=== PATIENT | female | born 1985 | race Caucasian/White ===

== ENCOUNTER 2018-01-27 22:27 | Emergency (ER) | payer OTHER ==
--- NOTE | 2018-01-27 23:13 | EDM.PDOC ---
ED HPI GENERAL MEDICAL PROBLEM - General Chief Complaint: General Stated Complaint: 13WEEKS/BLEEDING Time Seen by Provider: 01/27/18 23:12 Source of Information: Reports: Patient - History of Present Illness INITIAL COMMENTS - FREE TEXT/NARRATIVE: HISTORY AND PHYSICAL: History of present illness: [32-year-old female presents with vaginal bleeding she is known to be 13 weeks under OB care, she has prior miscarriage at 8 weeks and one viable infant at home No fever nausea vomiting chills sweats no lateral no back pain or abdominal cramping no fluid leakage or discharge does have bleeding and spotting intermittently since this evening ] Review of systems: As per history of present illness and below otherwise all systems reviewed and negative. Past medical history: As per history of present illness and as reviewed below otherwise noncontributory. Surgical history: As per history of present illness and as reviewed below otherwise noncontributory. Social history: No reported history of drug or alcohol abuse. Family history: As per history of present illness and as reviewed below otherwise noncontributory. Physical exam: HEENT: Atraumatic, normocephalic, pupils reactive, negative for conjunctival pallor or scleral icterus, mucous membranes moist, throat clear, neck supple, nontender, trachea midline. Lungs: Clear to auscultation, breath sounds equal bilaterally, chest nontender. Heart: S1S2, regular, negative for clicks, rubs, or JVD. Abdomen: Soft, nondistended, nontender. Negative for masses or hepatosplenomegaly. Negative for costovertebral tenderness. Pelvis: Stable nontender. Genitourinary: Scant blood in the vaginal vault no products of conception cervix is closed Rectal: Deferred. Extremities: Atraumatic, negative for cords or calf pain. Neurovascular unremarkable. Neuro: Awake, alert, oriented. Cranial nerves II through XII unremarkable. Cerebellum unremarkable. Motor and sensory unremarkable throughout. Exam nonfocal. Diagnostics: [CBC CMP UA serum hCG Quant ABO type A positive on file] Therapeutics: []Vaginal rest 48 hours off work Follow-up with Dr. Newman Impression: [Threatened 13 weeks 4 days by ultrasound heart rate 153 Cervix closed ABO type A positive on file ] Definitive disposition and diagnosis as appropriate pending reevaluation and review of above. - Related Data Allergies Allergy/AdvReac Type Severity Reaction Status Date / Time No Known Allergies Allergy Verified 01/27/18 23:00 Home Meds: Home Meds . [No Known Home Meds] 09/10/15 [History] Past Medical History HEENT History: Reports: None Cardiovascular History: Reports: None Respiratory History: Reports: None Gastrointestinal History: Reports: None Genitourinary History: Reports: Renal Calculus Other Genitourinary History: hx kidney stone [employer] History: Reports: , Therapeutic Musculoskeletal History: Reports: None Neurological History: Reports: None Psychiatric History: Reports: None Endocrine/Metabolic History: Reports: Obesity/BMI 30+, Other (See Below) Other Endocrine/Metabolic History: states was on thyroid medication as a teenager Hematologic History: Reports: None Immunologic History: Reports: None Oncologic (Cancer) History: Reports: None Dermatologic History: Reports: None - Past Surgical History Head Surgeries/Procedures: Reports: None HEENT Surgical History: Reports: Adenoidectomy, Tonsillectomy Dermatological Surgical History: Reports: None Social & Family History - Family History Endocrine/Metabolic: Reports: Diabetes, type II Oncologic: Reports: Skin - Tobacco Use Smoking Status *Q: Never Smoker Second Hand Smoke Exposure: No - Caffeine Use Caffeine Use: Reports: None - Recreational Drug Use Recreational Drug Use: No ED ROS GENERAL - Review of Systems Review Of Systems: ROS reveals no pertinent complaints other than HPI. ED EXAM, GENERAL - Physical Exam Exam: See Below Course - Vital Signs Last Recorded V/S: Last Vital Signs Temp 98.4 F 01/27/18 22:58 Pulse 77 01/27/18 22:58 Resp 18 01/27/18 22:58 BP 130/66 01/27/18 22:58 Pulse Ox 98 01/27/18 22:58 - Orders/Labs/Meds Orders: Active Orders 24 hr Category Date Time Status OB Ltd 1 or More Fetus [US] Stat Exams 01/27/18 23:11 Taken UA W/MICROSCOPIC [URIN] Stat Lab 01/27/18 23:17 Ordered Labs: Laboratory Tests 01/27/18 01/27/18 01/27/18 Range/Units 23:17 23:27 23:27 WBC 8.39 (4.0-11.0) K/uL RBC 4.04 L (4.30-5.90) M/uL Hgb 12.2 (12.0-16.0) g/dL Hct 34.5 L (36.0-46.0) % MCV 85.4 (80.0-98.0) fL MCH 30.2 (27.0-32.0) pg MCHC 35.4 (31.0-37.0) g/dL RDW Std Deviation 39.1 (28.0-62.0) fl RDW Coeff of Cristel 13 (11.0-15.0) % Plt Count 250 (150-400) K/uL MPV 10.20 (7.40-12.00) fL Neut % (Auto) 52.7 (48.0-80.0) % Lymph % (Auto) 39.6 (16.0-40.0) % [place] % (Auto) 6.6 (0.0-15.0) % Eos % (Auto) 0.5 (0.0-7.0) % Baso % (Auto) 0.6 (0.0-1.5) % Neut # (Auto) 4.4 (1.4-5.7) K/uL Lymph # (Auto) 3.3 H (0.6-2.4) K/uL [place] # (Auto) 0.6 (0.0-0.8) K/uL Eos # (Auto) 0.0 (0.0-0.7) K/uL Baso # (Auto) 0.1 (0.0-0.1) K/uL Nucleated RBC % 0.0 /100WBC Nucleated RBCs # 0 K/uL Sodium 137 (136-145) mmol/L Potassium 3.7 (3.5-5.1) mmol/L Chloride 106 (98-107) mmol/L Carbon Dioxide 23.1 (21.0-32.0) mmol/L BUN 8 (7.0-18.0) mg/dL Creatinine 0.6 (0.6-1.0) mg/dL Est Cr Clr Drug Dosing 122.25 mL/min Estimated GFR (MDRD) > 60.0 ml/min Glucose 95 (74-106) mg/dL Calcium 9.2 (8.5-10.1) mg/dL Total Bilirubin 0.3 (0.2-1.0) mg/dL AST 16 (15-37) IU/L ALT 18 (14-63) IU/L Alkaline Phosphatase 43 L (46-116) U/L Total Protein 7.1 (6.4-8.2) g/dL Albumin 3.6 (3.4-5.0) g/dL Globulin 3.5 (2.0-3.5) g/dL Albumin/Globulin Ratio 1.0 L (1.3-2.8) HCG, Quant 49337.0 mIU/mL Urine Color YELLOW Urine Appearance CLEAR Urine pH 6.5 (5.0-8.0) Ur Specific [place] <= 1.005 (1.001-1.035) Urine Protein NEGATIVE (NEGATIVE) mg/dL Urine Glucose (UA) NEGATIVE (NEGATIVE) mg/dL Urine Ketones NEGATIVE (NEGATIVE) mg/dL Urine Occult Blood LARGE H (NEGATIVE) Urine Nitrite NEGATIVE (NEGATIVE) Urine Bilirubin NEGATIVE (NEGATIVE) Urine Urobilinogen 0.2 (<2.0) EU/dL Ur Leukocyte Esterase NEGATIVE (NEGATIVE) Urine RBC 7-10 (0-2/HPF) Urine WBC 0-1 (0-5/HPF) Ur Epithelial Cells RARE (NONE-FEW) Urine Bacteria RARE (NEGATIVE) Departure - Departure Time of Disposition: 01:18 Disposition: Home, Self-Care 01 Condition: Good Clinical Impression: Threatened - Discharge Information Referrals: Jenn Newman MD [Primary Care Provider] - Forms: ED Department Discharge Additional Instructions: Vaginal rest as discussed no tampons douching sexual intercourse nothing per vagina 48 hours off work note provided Update Dr. newman tomorrow and follow with her as directed Return if symptoms persist or worsen or new concerning symptoms develope [facility] [address] [address] The following information is given to patients seen in the emergency department who are being discharged to home. This information is to outline your options for follow-up care. We provide all patients seen in our emergency department with a follow-up referral. The need for follow-up, as well as the timing and circumstances, are variable depending upon the specifics of your emergency department visit. If you don't have a primary care physician on staff, we will provide you with a referral. We always advise you to contact your personal physician following an emergency department visit to inform them of the circumstance of the visit and for follow-up with them and/or the need for any referrals to a consulting specialist. The emergency department will also refer you to a specialist when appropriate. This referral assures that you have the opportunity for follow-up care with a specialist. All of these measure are taken in an effort to provide you with optimal care, which includes your follow-up. Under all circumstances we always encourage you to contact your private physician who remains a resource for coordinating your care. When calling for follow-up care, please make the office aware that this follow-up is from your recent emergency room visit. If for any reason you are refused follow-up, please contact the [facility] emergency department at and asked to speak to the emergency department charge nurse. - My Orders Last 24 Hours: My Active Orders 01/27/18 23:11 OB Ltd 1 or More Fetus [US] Stat 01/27/18 23:17 UA W/MICROSCOPIC [URIN] Stat - Assessment/Plan Last 24 Hours: My Active Orders 01/27/18 23:11 OB Ltd 1 or More Fetus [US] Stat 01/27/18 23:17 UA W/MICROSCOPIC [URIN] Stat
[2018-01-28 00:46] LABS: CHLORIDE,CL 106 mmol/L (98-107); SODIUM,NA 137 mmol/L (136-145)
[2018-01-28 01:53] VITALS: BP 120/74
--- NOTE | 2018-01-28 13:11 | US ---
EXAM DATE: 01/27/18 PATIENT'S AGE: 32 Patient: LEXUS LAU Facility: [place], [place] Site . Site : 1985 Study: US OB Pelvis [id number] 12:05:30 AM Ordering Physician: Kristi Stout Final Report: INDICATION: 13 weeks gestation, vaginal bleeding TECHNIQUE: Ultrasound OB pelvis transabdominal, chavez scale and color Doppler. COMPARISON: None FINDINGS: Sonographic imaging demonstrates a single living intrauterine gestation. Fetus demonstrates a regular cardiac rate of 153 beats per minute. Fetus has a breech orientation. The placenta lies posterior without evidence of placenta previa. Amniotic fluid volume appears normal. There is a small hypoechoic area to the left of the gestational sac. The composite ultrasound gestational age is calculated at 13 weeks 4 days with an estimated sonographic due date of July 29, 2018. IMPRESSION: 1.Single viable intrauterine . 2.Possible small perigestational hemorrhage. Dictated by Rita Rodríguez MD @ Jan 28 2018 12:13AM (Electronic Signature) Report Signed by Proxy. KONSTANTIN
== END 2018-01-28 01:25 | disposition home or self-care (01) ==
LOC: MW.ED 22:27
DX: O20.0 Threatened abortion (principal); E66.9 Obesity, unspecified; Z3A.13 13 weeks gestation of pregnancy
CPT/HCPCS: 36415; 76815; 76815-26; 80053; 81001; 84702; 85025; 99284; 99284-25

== ENCOUNTER 2020-06-18 14:36 | Inpatient (IN) | payer OTHER ==
[2020-06-18 16:06] LABS: BLOOD UREA NITROGEN,BUN 3 mg/dL (7.0-18.0); CHLORIDE,CL 104 mmol/L (98-107); GLUCOSE RANDOM 88 mg/dL (74-106); POTASSIUM,K 3.8 mmol/L (3.5-5.1); SODIUM,NA 136 mmol/L (136-145)
[2020-06-18] MEDS ORDERED: Misoprostol 25 MCG (1/4 of 100 MCG) Tab VAG PRN ×2 (17:51)
[2020-06-18] MEDS ORDERED: Terbutaline 1 MG/ML SDV SUBCUT PRN (17:51)
[2020-06-18] MEDS: Lactated Ringers 1,000 ML IV SCH ×3 (18:08→23:59)
[2020-06-18] MEDS ORDERED: Sodium Chloride 0.9% 10 ML Syringe FLUSH PRN (18:22)
[2020-06-18] MEDS ORDERED: Lidocaine 1% 50 ML MDV INJECT PRN (18:22)
[2020-06-18] MEDS ORDERED: Butorphanol 1 MG/ML SDV IVPUSH PRN (18:22)
[2020-06-18] MEDS ORDERED: Methylergonovine 0.2 MG/1 ML Amp IM PRN (18:22)
[2020-06-18] MEDS ORDERED: Tranexamic Acid 1,000 MG in Sodium Chloride 0.9% 100 ML IV PRN (18:22)
[2020-06-18] MEDS ORDERED: Carboprost Tromethamine 250 MCG/1 ML Amp IM PRN (18:22)
[2020-06-18] MEDS ORDERED: Misoprostol 200 MCG Tab PO PRN (18:22)
[2020-06-18] MEDS ORDERED: Water For Irrigation,Sterile 1,000 ML Container IRR PRN (18:22)
[2020-06-18] MEDS ORDERED: Nalbuphine 10 MG/1 ML Vial IVPUSH PRN (18:22)
[2020-06-18] MEDS ORDERED: Sodium Chloride 0.9% 10 ML SDV IV PRN (18:22)
[2020-06-18] MEDS ORDERED: Sodium Chloride 0.9% 2.5 ML Syringe FLUSH PRN (18:22)
[2020-06-18] MEDS ORDERED: Oxytocin/0.9 % Sodium Chloride 30 UNIT/500 ML BAG IV SCH (18:30)
[2020-06-18] MEDS ORDERED: Bupivicaine/fentaNYL/NS 250 ML ONE (22:42)
--- NOTE | 2020-06-18 23:22 | PCM.PREANE ---
Preanesthetic Assessment - Procedure Proposed Procedure: Continuous Labor Epidural - Anesthesia/Transfusion/Family Hx Anesthesia History: Prior Anesthesia Without Reaction Transfusion History: No Prior Transfusion(s) - Review of Systems General: No Symptoms Pulmonary: No Symptoms Cardiovascular: No Symptoms Gastrointestinal: No Symptoms Neurological: No Symptoms Other: Reports: None - Physical Assessment NPO Status Date: 06/18/20 NPO Status Time: 21:45 Height: 5 ft 5.5 in Weight: 127.006 kg ASA Class: 3 Mental Status: Alert & Oriented x3 Airway Class: Mallampati = 2 Dentition: Reports: Normal Dentition Thyro-Mental Finger Breadths: 3 Mouth Opening Finger Breadths: 3 ROM/Head Extension: Full Lungs: Clear to Auscultation, Normal Respiratory Effort Cardiovascular: Regular Rate, Regular Rhythm - Lab Values: Laboratory Last Values WBC 9.29 K/uL (4.0-11.0) 06/18/20 15:38 RBC 3.57 M/uL (4.30-5.90) L 06/18/20 15:38 Hgb 10.3 g/dL (12.0-16.0) L 06/18/20 15:38 Hct 31.8 % (36.0-46.0) L 06/18/20 15:38 MCV 89.1 fL (80.0-98.0) 06/18/20 15:38 MCH 28.9 pg (27.0-32.0) 06/18/20 15:38 MCHC 32.4 g/dL (31.0-37.0) 06/18/20 15:38 RDW Std Deviation 48.4 fl (28.0-62.0) 06/18/20 15:38 RDW Coeff of Cristel 15 % (11.0-15.0) 06/18/20 15:38 Plt Count 220 K/uL (150-400) 06/18/20 15:38 MPV 9.80 fL (7.40-12.00) 06/18/20 15:38 Add Manual Diff YES 06/18/20 15:38 Neutrophils % (Manual) 31 % (48.0-80.0) L 06/18/20 15:38 Band Neutrophils % 2 % 06/18/20 15:38 Lymphocytes % (Manual) 56 % (16.0-40.0) H 06/18/20 15:38 Monocytes % (Manual) 11 % (0.0-15.0) 06/18/20 15:38 Nucleated RBC % 0.8 /100WBC 06/18/20 15:38 Absolute Seg Neuts 2.9 (1.4-5.7) 06/18/20 15:38 Band Neutrophils # 0.2 06/18/20 15:38 Lymphocytes # (Manual) 5.2 (0.6-2.4) H 06/18/20 15:38 Monocytes # (Manual) 1.0 (0.0-0.8) H 06/18/20 15:38 Nucleated RBCs # 0 K/uL 06/18/20 15:38 Sodium 136 mmol/L (136-145) 06/18/20 15:38 Potassium 3.8 mmol/L (3.5-5.1) 06/18/20 15:38 Chloride 104 mmol/L (98-107) 06/18/20 15:38 Carbon Dioxide 22.0 mmol/L (21.0-32.0) 06/18/20 15:38 BUN 3 mg/dL (7.0-18.0) L 06/18/20 15:38 Creatinine 0.5 mg/dL (0.6-1.0) L 06/18/20 15:38 Est Cr Clr Drug Dosing 146.91 mL/min 06/18/20 15:38 Estimated GFR (MDRD) > 60.0 ml/min 06/18/20 15:38 Glucose 88 mg/dL (74-106) 06/18/20 15:38 Uric Acid 4.4 mg/dL (2.6-7.2) 06/18/20 15:38 Calcium 8.7 mg/dL (8.5-10.1) 06/18/20 15:38 Total Bilirubin 0.5 mg/dL (0.2-1.0) 06/18/20 15:38 AST 25 IU/L (15-37) 06/18/20 15:38 ALT 29 IU/L (14-63) 06/18/20 15:38 Alkaline Phosphatase 87 U/L (46-116) 06/18/20 15:38 Total Protein 6.5 g/dL (6.4-8.2) 06/18/20 15:38 Albumin 2.5 g/dL (3.4-5.0) L 06/18/20 15:38 Globulin 4.0 g/dL (2.6-4.0) 06/18/20 15:38 Albumin/Globulin Ratio 0.6 (0.9-1.6) L 06/18/20 15:38 SARS-CoV-2 RNA (ISRRAEL) NEGATIVE (NEGATIVE) 06/18/20 18:57 Blood Type A POSITIVE 06/18/20 18:07 Antibody Screen NEGATIVE 06/18/20 18:07 - Allergies Allergies/Adverse Reactions: Allergies Allergy/AdvReac Type Severity Reaction Status Date / Time No Known Allergies Allergy Verified 06/18/20 15:19 - Anesthesia Plan Free Text/Narrative:: Continuous Labor Epidural - Acknowledgements Anesthesia Type Planned: Epidural Pt an Appropriate Candidate for the Planned Anesthesia: Yes Alternatives and Risks of Anesthesia Discussed w Pt/Guardian: Yes Pt/Guardian Understands and Agrees with Anesthesia Plan: Yes PreAnesthesia Questionnaire HEENT History: Reports: None Cardiovascular History: Reports: None Respiratory History: Reports: None Gastrointestinal History: Reports: GERD Other Gastrointestinal History: GERD with Genitourinary History: Reports: Renal Calculus Other Genitourinary History: hx kidney stone VP GENETIC History: Reports: , Therapeutic : 4 Para: 2 LMP (Approximate): Musculoskeletal History: Reports: Other (See Below) Other Musculoskeletal History: Back spasms Neurological History: Reports: None Psychiatric History: Reports: None Endocrine/Metabolic History: Reports: Obesity/BMI 30+, Other (See Below) Other Endocrine/Metabolic History: states was on thyroid medication as a teenager Hematologic History: Reports: None Immunologic History: Reports: None Oncologic (Cancer) History: Reports: None Dermatologic History: Reports: None - Infectious Disease History Infectious Disease History: Reports: Chicken Pox, Influenza - Past Surgical History Head Surgeries/Procedures: Reports: None HEENT Surgical History: Reports: Adenoidectomy, Oral Surgery, Tonsillectomy Other HEENT Surgeries/Procedures: [place] Teeth Female Surgical History: Reports: D&C - SUBSTANCE USE Smoking Status *Q: Never Smoker Second Hand Smoke Exposure: No - HOME MEDS Home Medications: Home Meds Pnv No.95/Ferrous Fum/Folic AC [ Vitamin Tablet] 1 tab PO DAILY 06/18/20 [History] - CURRENT (IN HOUSE) MEDS Current Meds: Current Medications Butorphanol Tartrate (Stadol) 1 mg IVPUSH Q1H PRN PRN Reason: Pain Carboprost Tromethamine (Hemabate Ds) 250 mcg IM ASDIRECTED PRN PRN Reason: Post Hemorrhage Oxytocin/Sodium Chloride (Oxytocin 30 Unit/500 Ml-Ns) 30 unit in 500 mls @ 2 mls/hr IV TITRATE JASON; Protocol Lactated Ringer's (Ringers, Lactated) 1,000 mls @ 150 mls/hr IV ASDIRECTED JASON Last Admin: 06/18/20 23:11 Dose: 500 mls/hr Documented by: Oxytocin/Sodium Chloride (Oxytocin 30 Unit/500 Ml-Ns) 30 unit in 500 mls @ 500 mls/hr IV TITRATE JASON Tranexamic Acid 1,000 mg/ (Sodium Chloride) 110 mls @ 660 mls/hr IV ONETIME PRN PRN Reason: Bleeding Lidocaine HCl (Xylocaine 1%) 50 ml INJECT ONETIME PRN PRN Reason: Laceration repair Methylergonovine Maleate (Methergine) 0.2 mg IM ASDIRECTED PRN PRN Reason: Post Hemorrhage Misoprostol (Cytotec) 25 mcg VAG ONETIME PRN PRN Reason: Cervical Ripening Last Admin: 06/18/20 18:54 Dose: 25 mcg Documented by: Misoprostol (Cytotec) 25 mcg VAG Q4H PRN PRN Reason: Cervical Ripening Misoprostol (Cytotec) 200 mcg PO ONETIME PRN PRN Reason: Post Hemorrhage Nalbuphine HCl (Nubain) 10 mg IVPUSH Q1H PRN PRN Reason: Pain (severe 7-10) Sodium Chloride (Saline Flush) 10 ml FLUSH ASDIRECTED PRN PRN Reason: Keep Vein Open Sodium Chloride (Saline Flush) 2.5 ml FLUSH ASDIRECTED PRN PRN Reason: Keep Vein Open Sodium Chloride (Normal Saline) 10 ml IV ASDIRECTED PRN PRN Reason: IV Use Sterile Water (Sterile Water For Irrigation) 1,000 ml IRR ASDIRECTED PRN PRN Reason: delivery Terbutaline Sulfate (Brethine) 0.25 mg SUBCUT ASDIRECTED PRN PRN Reason: Tacysystole Discontinued Medications Fentanyl/Bupivacaine HCl (Fentanyl/Bupivacaine/Ns 2 Mcg-0.125% 250 Ml) Confirm Administered Dose 250 mls @ as directed .ROUTE .[employer] ONE Stop: 06/18/20 22:43
[2020-06-18] MEDS: Oxytocin/0.9 % Sodium Chloride 30 UNIT/500 ML BAG IV SCH (23:58)
[2020-06-19] MEDS: Oxytocin/0.9 % Sodium Chloride 30 UNIT/500 ML BAG IV SCH (03:50)
[2020-06-19] MEDS ORDERED: Acetaminophen 500 MG Tab PO PRN ×2 (21:13)
[2020-06-19] MEDS ORDERED: Witch Hazel Medicated Pads 40/Jar TOP PRN (21:13)
[2020-06-19] MEDS ORDERED: Ibuprofen 400 MG Tab PO PRN (21:13)
[2020-06-19] MEDS ORDERED: Benzocaine/Menthol 20%-0.5% Spray 78 GM Cannister TOP PRN (21:13)
[2020-06-19] MEDS ORDERED: Docusate Sodium 100 MG Cap PO PRN (21:13)
[2020-06-19] MEDS ORDERED: Bisacodyl 10 MG Supp RECTAL PRN (21:13)
[2020-06-19] MEDS ORDERED: Lanolin 100% Cream 7 GM Tube TOP PRN (21:13)
[2020-06-20] MEDS: Ibuprofen 800 MG Tab PO PRN ×2 (03:00→10:35)
[2020-06-20 06:16] LABS: BLOOD UREA NITROGEN,BUN 5 mg/dL (7.0-18.0); CARBON DIOXIDE,CO2 22.3 mmol/L (21.0-32.0); CHLORIDE,CL 103 mmol/L (98-107); GLUCOSE RANDOM 87 mg/dL (74-106); POTASSIUM,K 3.7 mmol/L (3.5-5.1); SODIUM,NA 135 mmol/L (136-145)
--- NOTE | 2020-06-20 07:34 | PCM48HPAN ---
Post Anesthesia Note - EVALUATION WITHIN 48HRS OF ANESTHETIC Vital Signs in Normal Range: Yes Patient Participated in Evaluation: Yes Respiratory Function Stable: Yes Airway Patent: Yes Cardiovascular Function Stable: Yes Hydration Status Stable: Yes Pain Control Satisfactory: Yes Nausea and Vomiting Control Satisfactory: Yes Mental Status Recovered: Yes Vital Signs: Last Vital Signs Temp 96.4 F L 06/20/20 04:40 Pulse 90 06/20/20 04:40 Resp 15 06/20/20 04:40 BP 113/64 06/20/20 04:40 Pulse Ox 95 06/20/20 04:40 - COMMENTS/OBSERVATIONS Free Text/Narrative:: Denies any problems related to epidural
--- NOTE | 2020-06-20 12:04 | PCM.PNPP ---
- General Info Date of Service: 06/20/20 Functional Status: Reports: Pain Controlled, Tolerating Diet, Ambulating, Urinating - Review of Systems General: Reports: No Symptoms HEENT: Reports: No Symptoms Pulmonary: Reports: No Symptoms Cardiovascular: Reports: No Symptoms Gastrointestinal: Reports: No Symptoms Genitourinary: Reports: No Symptoms Musculoskeletal: Reports: No Symptoms Skin: Reports: No Symptoms Neurological: Reports: No Symptoms Psychiatric: Reports: No Symptoms - Patient Data Vital Signs - Most Recent: Last Vital Signs Temp 36.7 C 06/20/20 09:00 Pulse 74 06/20/20 09:00 Resp 17 06/20/20 09:00 BP 121/65 06/20/20 09:00 Pulse Ox 96 06/20/20 09:00 Weight - Most Recent: 280 lb Lab Results - Last 24 Hours: Laboratory Results - last 24 hr 06/19/20 06/19/20 06/20/20 Range/Units 20:53 20:53 04:58 WBC 10.66 (4.0-11.0) K/uL RBC 3.38 L (4.30-5.90) M/uL Hgb 9.8 L (12.0-16.0) g/dL Hct 30.3 L (36.0-46.0) % MCV 89.6 (80.0-98.0) fL MCH 29.0 (27.0-32.0) pg MCHC 32.3 (31.0-37.0) g/dL RDW Std Deviation 49.2 (28.0-62.0) fl RDW Coeff of Cristel 15 (11.0-15.0) % Plt Count 224 (150-400) K/uL MPV 10.10 (7.40-12.00) fL Neut % (Auto) 30.6 L (48.0-80.0) % Lymph % (Auto) 60.2 H (16.0-40.0) % Vigo % (Auto) 8.2 (0.0-15.0) % Eos % (Auto) 0.4 (0.0-7.0) % Baso % (Auto) 0.6 (0.0-1.5) % Neut # (Auto) 3.3 (1.4-5.7) K/uL Lymph # (Auto) 6.4 H (0.6-2.4) K/uL Vigo # (Auto) 0.9 H (0.0-0.8) K/uL Eos # (Auto) 0.0 (0.0-0.7) K/uL Baso # (Auto) 0.1 (0.0-0.1) K/uL Nucleated RBC % 0.0 /100WBC Nucleated RBCs # 0 K/uL Cord ABG pH 7.557 H (7.18-7.38) Cord ABG Base Excess -3 (-10--2) Cord VBG pH 7.331 (7.25-7.45) Cord VBG Base Excess -6 (-10--2) Sodium (136-145) mmol/L Potassium (3.5-5.1) mmol/L Chloride (98-107) mmol/L Carbon Dioxide (21.0-32.0) mmol/L BUN (7.0-18.0) mg/dL Creatinine (0.6-1.0) mg/dL Est Cr Clr Drug Dosing mL/min Estimated GFR (MDRD) ml/min Glucose (74-106) mg/dL Calcium (8.5-10.1) mg/dL Total Bilirubin (0.2-1.0) mg/dL AST (15-37) IU/L ALT (14-63) IU/L Alkaline Phosphatase (46-116) U/L Total Protein (6.4-8.2) g/dL Albumin (3.4-5.0) g/dL Globulin (2.6-4.0) g/dL Albumin/Globulin Ratio (0.9-1.6) 06/20/20 Range/Units 04:58 WBC (4.0-11.0) K/uL RBC (4.30-5.90) M/uL Hgb (12.0-16.0) g/dL Hct (36.0-46.0) % MCV (80.0-98.0) fL MCH (27.0-32.0) pg MCHC (31.0-37.0) g/dL RDW Std Deviation (28.0-62.0) fl RDW Coeff of Cristel (11.0-15.0) % Plt Count (150-400) K/uL MPV (7.40-12.00) fL Neut % (Auto) (48.0-80.0) % Lymph % (Auto) (16.0-40.0) % Vigo % (Auto) (0.0-15.0) % Eos % (Auto) (0.0-7.0) % Baso % (Auto) (0.0-1.5) % Neut # (Auto) (1.4-5.7) K/uL Lymph # (Auto) (0.6-2.4) K/uL Vigo # (Auto) (0.0-0.8) K/uL Eos # (Auto) (0.0-0.7) K/uL Baso # (Auto) (0.0-0.1) K/uL Nucleated RBC % /100WBC Nucleated RBCs # K/uL Cord ABG pH (7.18-7.38) Cord ABG Base Excess (-10--2) Cord VBG pH (7.25-7.45) Cord VBG Base Excess (-10--2) Sodium 135 L (136-145) mmol/L Potassium 3.7 (3.5-5.1) mmol/L Chloride 103 (98-107) mmol/L Carbon Dioxide 22.3 (21.0-32.0) mmol/L BUN 5 L (7.0-18.0) mg/dL Creatinine 0.5 L (0.6-1.0) mg/dL Est Cr Clr Drug Dosing 146.91 mL/min Estimated GFR (MDRD) > 60.0 ml/min Glucose 87 (74-106) mg/dL Calcium 8.1 L (8.5-10.1) mg/dL Total Bilirubin 0.5 (0.2-1.0) mg/dL AST 22 (15-37) IU/L ALT 24 (14-63) IU/L Alkaline Phosphatase 78 (46-116) U/L Total Protein 5.9 L (6.4-8.2) g/dL Albumin 2.2 L (3.4-5.0) g/dL Globulin 3.7 (2.6-4.0) g/dL Albumin/Globulin Ratio 0.6 L (0.9-1.6) Med Orders - Current: Current Medications Acetaminophen (Tylenol Extra Strength) 500 mg PO Q4H PRN PRN Reason: Pain Acetaminophen (Tylenol Extra Strength) 1,000 mg PO Q4H PRN PRN Reason: Pain Benzocaine/Menthol (Dermoplast Pain Relief 20%-0.5% Independence) 78 gm TOP ASDIRECTED PRN PRN Reason: Perineal Comfort Measure Bisacodyl (Dulcolax) 10 mg RECTAL ONETIME PRN PRN Reason: Constipation Butorphanol Tartrate (Stadol) 1 mg IVPUSH Q1H PRN PRN Reason: Pain Carboprost Tromethamine (Hemabate Ds) 250 mcg IM ASDIRECTED PRN PRN Reason: Post Hemorrhage Docusate Sodium (Colace) 100 mg PO BID PRN PRN Reason: Constipation Emollient Ointment (Lansinoh Hpa) 0 gm TOP ASDIRECTED PRN PRN Reason: Sore Nipples Oxytocin/Sodium Chloride (Oxytocin 30 Unit/500 Ml-Ns) 30 unit in 500 mls @ 2 mls/hr IV TITRATE JASON; Protocol Last Titration: 06/19/20 19:30 Dose: 30 munits/min, 30 mls/hr Documented by: Lactated Ringer's (Ringers, Lactated) 1,000 mls @ 150 mls/hr IV ASDIRECTED JASON Last Admin: 06/18/20 23:59 Dose: 150 mls/hr Documented by: Oxytocin/Sodium Chloride (Oxytocin 30 Unit/500 Ml-Ns) 30 unit in 500 mls @ 500 mls/hr IV TITRATE JASON Tranexamic Acid 1,000 mg/ (Sodium Chloride) 110 mls @ 660 mls/hr IV ONETIME PRN PRN Reason: Bleeding Ibuprofen (Motrin) 400 mg PO Q4H PRN PRN Reason: Pain Ibuprofen (Motrin) 800 mg PO Q6H PRN PRN Reason: Pain Last Admin: 06/20/20 10:35 Dose: 800 mg Documented by: Lidocaine HCl (Xylocaine 1%) 50 ml INJECT ONETIME PRN PRN Reason: Laceration repair Methylergonovine Maleate (Methergine) 0.2 mg IM ASDIRECTED PRN PRN Reason: Post Hemorrhage Misoprostol (Cytotec) 25 mcg VAG ONETIME PRN PRN Reason: Cervical Ripening Last Admin: 10/05/20 18:54 Dose: 25 mcg Documented by: Misoprostol (Cytotec) 25 mcg VAG Q4H PRN PRN Reason: Cervical Ripening Misoprostol (Cytotec) 200 mcg PO ONETIME PRN PRN Reason: Post Hemorrhage Nalbuphine HCl (Nubain) 10 mg IVPUSH Q1H PRN PRN Reason: Pain (severe 7-10) Sodium Chloride (Saline Flush) 10 ml FLUSH ASDIRECTED PRN PRN Reason: Keep Vein Open Sodium Chloride (Saline Flush) 2.5 ml FLUSH ASDIRECTED PRN PRN Reason: Keep Vein Open Sodium Chloride (Normal Saline) 10 ml IV ASDIRECTED PRN PRN Reason: IV Use Sterile Water (Sterile Water For Irrigation) 1,000 ml IRR ASDIRECTED PRN PRN Reason: delivery Terbutaline Sulfate (Brethine) 0.25 mg SUBCUT ASDIRECTED PRN PRN Reason: Tacysystole Witch Brianne (Tucks) 1 pad TOP ASDIRECTED PRN PRN Reason: comfort care Last Admin: 06/20/20 01:45 Dose: 1 pad Documented by: Discontinued Medications Ephedrine Sulfate (Emerphed) Confirm Administered Dose 50 mg .ROUTE .STK-MED ONE Stop: 06/18/20 23:25 Fentanyl/Bupivacaine HCl (Fentanyl/Bupivacaine/Ns 2 Mcg-0.125% 250 Ml) Confirm Administered Dose 250 mls @ as directed .ROUTE .STK-MED ONE Stop: 06/18/20 22:43 - Infant Interaction Infant Disposition, : [place] at Bedside Interaction: Holding Infant Feeding: Breastfed ; Nursed Well Support Person: - Recovery Exam Fundal Tone: Firm Fundal Level: At Umbilicus Fundal Placement: Midline Lochia Amount: Small Lochia Color: Rubra/Red Perineum Description: Intact, Minimal Bruising/Swelling Episiotomy/Laceration: None Bladder Status: Voiding Urinary Elimination: Voided - Exam General: Alert, Oriented, Cooperative, No Acute Distress HEENT: Pupils Equal, Pupils Reactive, EOMI Neck: Supple, Trachea Midline, No JVD Lungs: Normal Respiratory Effort GI/Abdominal Exam: Soft, Non-Tender, No Organomegaly, No Distention Extremities: Normal Inspection, Normal Range of Motion, Non-Tender, Pedal Edema (2+) Skin: Warm, Dry, Intact Neurological: No New Focal Deficit Psy/Mental Status: Alert, Normal Affect, Normal Mood - Problem List Review Problem List Initiated/Reviewed/Updated: Yes - My Orders Last 24 Hours: My Active Orders 06/19/20 21:13 Acetaminophen [Tylenol Extra Strength] 1,000 mg PO Q4H PRN Acetaminophen [Tylenol Extra Strength] 500 mg PO Q4H PRN Benzocaine/Menthol [Dermoplast Pain Relief 20%-0.5% Independence] 78 gm TOP ASDIRECTED PRN Docusate Sodium [Colace] 100 mg PO BID PRN Ibuprofen [Motrin] 400 mg PO Q4H PRN Ibuprofen [Motrin] 800 mg PO Q6H PRN Lanolin [Lansinoh HPA] See Dose Instructions TOP ASDIRECTED PRN bisacodyL [Dulcolax] 10 mg RECTAL ONETIME PRN witch Brianne [Tucks] 1 pad TOP ASDIRECTED PRN 06/19/20 21:14 Patient Status [ADT] Routine May Shower [RC] ASDIRECTED Up ad Nicol [RC] ASDIRECTED Vital Signs [RC] PER UNIT ROUTINE Assess Lochia [WOMSER] Per Unit Routine Assess Uterine Involution [WOMSER] Per Unit Routine Peripheral IV Discontinue [OM.PC] Routine - Assessment Assessment:: 34yo PPD1 s/p , stable and recovering well. - Plan Plan:: vital stable Hgb 9.8 today, denies s/s of anemia, will start iron supplement Stable for discharge home, reviewed care instructions
--- NOTE | 2020-06-20 15:34 | OR ---
SURGEON: Brandt Saucedo MD DATE OF PROCEDURE: 06/19/2020 INDICATION FOR PROCEDURE: A 34-year-old G3, P2-0-0-2, at 37 weeks 6 days, admitted for induction of labor due to gestational hypertension. The patient was found in the office to have mild range blood pressures 140s over 70 to 80s. She had normal preeclampsia labs and a protein-creatinine ratio of 0.2. Discussed with the patient increased risks of gestational hypertension on mother and baby in continuing the , and she was agreeable to induction of labor. She had otherwise uncomplicated . She has a history of a baby with macrosomia and shoulder dystocia, but did not have any long-term complications. She is GBS negative. She received Cytotec and Pitocin for induction of labor. She received an epidural with good pain relief. She had AROM with clear fluid. She progressed initially very slowly with Pitocin and was persistently at 5 cm and -2 station. An IUPC was placed, Pitocin was gradually increased until her contractions were adequate. She started making progress and was 9 cm dilated with a reducible rim. She started to have moderate amount of vaginal bleeding with blood clots concerning for placental abruption, baby had Cat 1 tracing throughout labor. She was asked to begin pushing. PREOPERATIVE DIAGNOSES: 1. Shah intrauterine at 37 weeks 6 days. 2. Gestational hypertension. 3. Marginal placental abruption. POSTOPERATIVE DIAGNOSES: 1. Shah intrauterine at 37 weeks 6 days. 2. Gestational hypertension. 3. Marginal placental abruption. PROCEDURE PERFORMED: Normal spontaneous vaginal delivery. FINDINGS: Viable female infant. scores were 6 and 9, and weight of 8 pounds 2 ounces. No nuchal cord was noted. ANESTHESIA: Epidural. ESTIMATED BLOOD LOSS: 400 mL. DESCRIPTION OF PROCEDURE: The patient pushed with contractions for approximately 16 minutes with good descent. head delivered in occiput anterior position, restituted ROT. Anterior shoulder delivered easily. No nuchal cord was noted. Posterior shoulder and body were delivered easily. The baby was placed on the maternal chest and evaluated by awaiting nursery staff. The baby was vigorous, pink, and moving all extremities after delivery. The umbilical cord was clamped and cut after 60 seconds and no longer pulsating. Umbilical cord gases were obtained. Placenta was removed with gentle traction on the umbilical cord and fundal massage. It was examined and found to be intact with a 3-vessel cord. The fundus was firm and at the umbilicus, and the bleeding was light. The perineum was examined, and no lacerations were noted. She tolerated the procedure well and was given care instructions. RADHA DE LA CRUZ /[id number] MTDD
[2020-06-20 19:34] VITALS: BP 145/86; PULSE 78
== END 2020-06-20 23:22 | disposition home or self-care (01) | DRG 807 ==
LOC: MW.OBCHECK 14:36 → MW.OB 14:38 → UNDOADMOB 18:22 → MW.OBCHECK 18:22 → INTOOBSV 06-19 20:53 → OBSVTOIN 06-19 20:53 → MW.OB 06-20 01:30 → UNDODISIN 06-20 23:22
PROVIDERS: ADMIT Obstetrics & Gynecology; ATTEND Obstetrics & Gynecology
PROC: 10E0XZZ Delivery of Products of Conception, External Approach (ICD-10-PCS; principal; 2020-06-19)
PROC: 10907ZC Drainage of Amniotic Fluid, Therapeutic from Products of Conception, Via Natural or Artificial Opening (ICD-10-PCS; 2020-06-19)
PROC: 3E0R3BZ Introduction of Anesthetic Agent into Spinal Canal, Percutaneous Approach (ICD-10-PCS; 2020-06-19)
PROC: 00HU33Z Insertion of Infusion Device into Spinal Canal, Percutaneous Approach (ICD-10-PCS; 2020-06-19)
PROC: 10H07YZ Insertion of Other Device into Products of Conception, Via Natural or Artificial Opening (ICD-10-PCS; 2020-06-19)
DX: O13.4 Gestational [pregnancy-induced] hypertension without significant proteinuria, complicating childbirth (principal); Z37.0 Single live birth; Z3A.37 37 weeks gestation of pregnancy; O45.93 Premature separation of placenta, unspecified, third trimester; Z20.828 Contact with and (suspected) exposure to other viral communicable diseases
CPT/HCPCS: 01967; 36415; 51702; 59025; 59409; 80053; 82803; 84550; 85025; 86592; 86850; 86900; 86901; A9270-GY; J2590; J7120; U0002